=== PATIENT | male | born 1940 | race Caucasian/White ===

== ENCOUNTER 2025-04-19 10:34 | Outpatient (CLI) | payer MEDICARE, SELFPAY ==
--- NOTE | ~2025-04-19 | CT_ITS ---
EXAM/PROCEDURE: CT abdomen pelvis wo/w con HISTORY: MICROHEMATURIA COMPARISON: None available. TECHNIQUE: Pre and postcontrast CT of the abdomen and pelvis performed FINDINGS: Significantly enlarged prostate gland. No hydroureteronephrosis or urolithiasis seen. The distal portions of both ureters are not well seen on postcontrast series. The proximal ureters appear normal. The kidneys appear normal. Only part of the urinary bladder is filled with contrast but no large bladder mass seen. Gallbladder spleen pancreas stomach and adrenal glands and aorta appear normal for technique, then at the sclerotic calcification the aorta. The bowel gas pattern is nonobstructive with no free air or pneumatosis seen. Small amount of free fluid present in the lower pelvis. Moderate to severe sigmoid diverticular disease noted with no definite acute diverticulitis. Small bilateral fat-containing inguinal hernias, right greater than left. Calcified granuloma in the lung bases and mild fibrotic appearing changes. The lung bases are otherwise clear. Heart size normal with coronary artery calcifications. IMPRESSION: 1. Somewhat limited CT IVP with nonenhancement of the distal ureters on both sides and incomplete filling of the urinary bladder. The kidneys appear normal. Visualized portions of the ureters and urinary bladder also appear normal with no discrete source seen for hematuria. 2. Small amount of free fluid in the lower pelvis of uncertain origin. 3. Significant prostatomegaly. Advanced diverticular disease also present but no obvious diverticulitis. Reviewed, dictated and finalized at location A. UNTS PAYABLE ASSISTANT IMPRESSION: 1. Somewhat limited CT IVP with nonenhancement of the distal ureters on both si jose and incomplete filling of the urinary bladder. The kidneys appear normal. V isualized portions of the ureters and urinary bladder also appear normal with n o discrete source seen for hematuria. 2. Small amount of free fluid in the lower pelvis of uncertain origin. 3. Significant prostatomegaly. Advanced diverticular disease also present but n o obvious diverticulitis.
[2025-04-19 11:04] LABS: Estimated Glomerular Filt Rate 45
--- OUTSIDE RECORDS SUMMARY | 2025-04-19 12:30 | XMS_ITS | Clinical Summary ---
Author Organization [facility] Address [address] [place] [address] Phone Care Team Providers Care Digital Associate Media Director Name Role Phone Navjot Pelletier MD Primary Care Provider [phone] Allergies No known active allergies Medications atorvastatin (LIPITOR) 20 MG Tablet Take 20 mg by mouth daily. Active fenofibrate 160 MG Tablet Take 1 Tablet by mouth daily. 90 Tablet 3 07/09/2021 Active Social History Tobacco Use Types Packs/Day Years Used Date Smoking Tobacco: Former Smokeless Tobacco: Current Chew Alcohol Use Standard Drinks/Week Comments Yes 0 (1 standard drink = 0.6 oz pure alcohol) Occasionally, -3 times per week, 1 peach schnaps Sex and Gender Information Value Date Recorded Sex Assigned at Not on file Legal Sex Male 12:22 AM CDT Gender Identity Not on file Sexual Orientation Not on file Last Filed Vital Signs Vital Sign Reading Time Taken Comments Blood Pressure 134/80 03/17/2024 11:15 AM MINK FARMER Pulse 57 03/17/2024 11:15 AM MINK FARMER Temperature 35.6 C (96 F) 03/17/2024 9:24 AM MINK FARMER Respiratory Rate 16 03/17/2024 11:15 AM MINK FARMER Oxygen Saturation 99% 03/17/2024 11:15 AM MINK FARMER Inhaled Oxygen Concentration - - Weight 77 kg (169 lb 12.1 oz) 03/17/2024 9:24 AM MINK FARMER Height 180.3 cm (5' 11) 03/17/2024 9:24 AM MINK FARMER Body Mass Index 23.68 03/17/2024 9:24 AM MINK FARMER Plan of Treatment Health Maintenance Due Date Last Done Comments Hepatitis C Virus (HCV) Screening 1940 TdaP Immunization 1940 Pneumococcal Immunization (5 0+ years) (1 of 1 - PCV) 1992 Zoster Immunization (1 of 2) 1992 Respiratory Syncytial Virus (RSV) Immunization (Adult) (1 - 1-dose 75+ series) 2017 Medicare Initial AWV [id number] 05/05/2022 Influenza Immunization (#1) 2025 SARS-COV-2 Immunization (3 - season) 2025 08/22/2020, 07/30/2020 Hepatitis B Immunization Aged Out No longer eligible based on patient's age to complete this topic Human Papillomavirus (HPV) Immunization (No Doses Required) Completed Meningococcal Immunization (ACWY) Aged Out No longer eligible b ased on patient's age to complete this topic Rotavirus Immunization Aged Out No lo nger eligible based on patient's age to complete this topic Insurance [facility] Advance Directives Documents on File Type Date Recorded Patient Icu Registered Nurse Expl anation Power of Field Scout for Health Care 07/08/2021 1:58 PM POA-HC, 07/08/2021 * No CPR-Selective Treatment (Latest Code Status on File) Date Activated Date Inactivated Comments 07/07/2021 3:30 PM 07/09/2021 5:23 PM No CPR - Selec tive Treatment: FULL ARREST: Do Not Attempt Resuscitation. PRE-ARREST: DO NOT USE INTUBATION OR MECHANICAL VENTILATION, but may use basic medical treatment like CPAP or BiPAP, antibiotics, IV fluids, oxygen, etc. Avoid care in ICU setting. Question Answer Comments Physician documentation made in notes? Yes Care Teams Digital Associate Media Director Relationship Specialty Start Date End Date Navjot Pelletier MD [address] [place] [address] PCP - General Sports Medicine 07/08/21
--- OUTSIDE RECORDS SUMMARY | 2025-04-19 12:30 | XMS_ITS | Clinical Summary ---
Author Organization [facility] Address [address] [place] [address] Care Team Providers Care Product Architect Name Role Phone Michael Martinez MD Primary Care Provider [phone] Meka Miguel SERVICE LINE COORDINATOR-BC Unavailable [phone] Allergies No known active allergies Medications aspirin 325 MG tablet Take 1 tablet (325 mg total) by mouth daily. 03/20/2024 Active atorvastatin (LIPITOR) 20 MG tablet Take 1 tablet (20 mg total) by mouth daily. Active clopidogrel (PLAVIX) 75 MG tablet Take 1 tablet (75 mg total) by mouth daily. 03/20/2024 Active Active Problems No known active problems Social History Tobacco Use Types Packs/Day Years Used Date Smoking Tobacco: Never Assessed Sex and Gender Information Value Date Recorded Sex Assigned at Male 07/07/2024 7:55 AM LINING PRINTER Legal Sex Male 4:53 PM LINING PRINTER Gender Identity Not on file Sexual Orientation Not on file Last Filed Vital Signs Vital Sign Reading Time Taken Comments Blood Pressure 120/78 06/28/2024 1:49 PM LINING PRINTER Pulse 98 06/28/2024 1:49 PM LINING PRINTER Temperature - - Respiratory Rate - - Oxygen Saturation 95% 06/28/2024 1:49 PM LINING PRINTER Inhaled Oxygen Concentration - - Weight 69 kg (152 lb 3.2 oz) 06/28/2024 1:49 PM LINING PRINTER Height 181.6 cm (5' 11.5) 06/28/2024 1:49 PM CS T Body Mass Index 20.93 06/28/2024 1:49 PM LINING PRINTER Plan of Treatment Upcoming Encounters Date Type Department Care Team (Late st Contact Info) Description 07/04/2025 9:30 AM LINING PRINTER Office Visit [facility] [place] [address] Marco Antonio Suggs MD [facility] [address] [place] [address] Health Maintenance Due Date Last Done Comments ASCVD LDL 1942 DTaP, Tdap and Td Vaccines ( 1 - Tdap) 1961 Pneumococcal Vaccine: 50+ Years (1 of 1 - PCV) 1992 Zoster Vaccines (1 of 2) 1992 Annual Medicare Wellness Visit 2007 RSV Immunization or 60+ Years (1 - 1-dose 75+ series) 2017 COVID-19 Vaccine ( - 2024-2 6 season) 2025 05/27/2024, 08/22/2020, 07/30/2020 Influenza Adult (#1) 2025 Hepatitis A Vaccines Aged Out No long er eligible based on patient's age to complete this topic Meningococcal B Vaccine Aged Out No l onger eligible based on patient's age to complete this topic Meningococcal Vaccine Aged Out No pina cady eligible based on patient's age to complete this topic RSV Immunizations Under 20 Months Aged Out No longer eligible b ased on patient's age to complete this topic Insurance [facility] MEDICARE Care Teams Product Architect Relationship Specialty Start Date End Date Michael Martinez MD [address] [facility] [place] [address] PCP - General FAMILY PRACTICE 04/21/24 Meka Miguel, SERVICE LINE COORDINATOR- [address] [place] [address] NURSE PRACTITIONER 04/21/24
--- OUTSIDE RECORDS SUMMARY | 2025-04-19 12:30 | XMS_ITS | Clinical Summary ---
Author Organization [facility] Address [address] [place] [address] Care Team Providers Care Community Engagement Coordinator Name Role Phone Unknown, Provider Primary Care Provider Unavaila ble Source Comments [facility] [email or web address],non-owned Affiliates and Associated Physician Practices is amultiple site organization consisting of ambulatory clinics and hospital sitesin [place], [place], [place] and [place]. This disclosure is being madepursuant to the Care Everywhere program and may not contain all information available regarding this patient. Last updated 18.[facility] [email or web address] Allergies No known active allergies Medications * Be aware that medications may not be up to date on this document. Alwaysverify current medications with the patient. atorvastatin (Lipitor) 10 MG tablet Take 2 (two) tablets by mouth at bedtime Active aspirin (Aspirin) 325 MG tablet Take 1 (one) tablet by mouth once daily 30 tablet 11 03/20/2024 Active clopidogrel (plaVIX) 75 MG tablet Take 1 (one) tablet by mouth once daily 30 tablet 3 03/20/2024 Active Active Problems Problem Noted Date Diagnosed Date Stenosis of carotid artery, unspecified laterali ty 03/17/2024 [facility]brovascular accident [facility]CVA), [facility] 03/17/2024 Social History Tobacco Use Types Packs/Day Years Used Date Smoking Tobacco: Never Smokeless Tobacco: Current Chew Tobacco Cessation:Ready to Q uit: Not Asked; Counseling Given: Not Answered AUDIT-C Answer Date Recorded Q1: How often do you have a drink containing alc ohol? 2-4 times a month 03/17/2024 Q2: How many drinks containi ng alcohol do you have on a typical day when you are drinking? 1 or 2 03/17/2024 Q3: How often do you have si x or more drinks on one occasion? Never 03/17/2024 Overall Financial Resource Strain (CARDIA) Answe r Date Recorded How hard is it for you to pa y for the very basics like food, housing, medical care, and heating? Not hard at all 03/17/2024 PHQ-2 Answer Date Recorded Patient Health Questionnaire-2 Score 0 03/19/2024 [facility] [place] [facility] - Occupational Stress Questionnaire Answer Date Recorded Do you feel stress - tense, restless, nervous, or anxious, or unable to sleep at night because your mind is troubled all the time - these days? Not at all 03/17/2024 Hunger Vital Sign Answer Date Recorded Within the past 12 months, y ou worried that your food would run out before you got the money to buy more. Never true 03/17/20 24 Within the past 12 months, t he food you bought just didn't last and you didn't have money to get more. Never true 03/17/2024 PRAPARE - Transportation Answer Date Re corded In the past 12 months, has l ack of transportation kept you from medical appointments or from getting medications? No 03/05 In the past 12 months, has l ack of transportation kept you from meetings, work, or from getting things needed for daily living? No 03/17/2024 Housing Stability Vital Sign Answer Shadi e Recorded In the last 12 months, was t here a time when you were not able to pay the mortgage or rent on time? No 03/17/2024 In the past 12 months, how m any times have you moved where you were living? 1 03/17/2024 At any time in the past 12 m [facility], were you homeless or living in a senior care (including now)? No 03/17/2024 Sex and Gender Information Value Date Recorded Sex Assigned at Not on file Legal Sex Male 10:32 AM MATERIAL MOVER Gender Identity Not on file Sexual Orientation Not on file Last Filed Vital Signs Vital Sign Reading Time Taken Comments Blood Pressure 126/68 08/18/2024 1:55 PM CDT Pulse 72 08/18/2024 1:55 PM CDT Temperature 37 C (98.6 F) 03/19/2024 3:00 PM MATERIAL MOVER Respiratory Rate 18 08/18/2024 1:55 PM CDT Oxygen Saturation 98% 08/18/2024 1:55 PM CDT Inhaled Oxygen Concentration - - Weight 67.1 kg (148 lb) 08/18/2024 1:55 PM CDT Height 181.6 cm (5' 11.5) 08/18/2024 1:55 PM CD T Body Mass Index 20.35 08/18/2024 1:55 PM CDT Plan of Treatment Health Maintenance Due Date Last Done Comments DTAP/TDAP/TD VACCINES (1 - Tdap) 1961 PNEUMOCOCCAL VACCINE 50+ (1 of 1 - PCV) 1992 ZOSTER VACCINE (1 of 2) 1992 Respiratory Syncytial Virus (RSV) Vaccine Pt: or over 60 yrs (1 - 1-dose 75+ series) 2017 DEPRESSION SCREENING 05/05/2024 03/17/2024 MEDICARE AWV CALENDAR YEAR 2024 COVID-19 VACCINE (1 - 2024-2 6 season) 2025 INFLUENZA VACCINE (#1) 2025 HEPATITIS B VACCINE Aged Out No longe r eligible based on patient's age to complete this topic HIB VACCINE Aged Out No longer eligi ble based on patient's age to complete this topic HPV VACCINE Aged Out No longer eligi ble based on patient's age to complete this topic MENINGOCOCCAL (Group B) VACC INE SHARED DECISION-MAKING Aged Out No longer eligibl e based on patient's age to complete this topic MENINGOCOCCAL GROUPS A/C/Y/W VACCINE Aged Out No longer eligible b ased on patient's age to complete this topic Medical Devices Implanted Type Area Chronometer Repairer Device Identifier Shelf Expiration Date Model / Serial / Lot Stent-03/18/20 24 Implanted:Qty: 1 on 03/18/2024 by Wandy Moscoso MD Stent Right: Carotid [employer] 07/16/2027 / [id number] / [id number] Description:R ICA stent Insurance [facility] MANAGED MEDICARE ADV Advance Directives * Full Code (Latest Code Status on File) Date Activated Date Inactivated Comments 03/17/2024 1:48 PM 03/19/2024 8:24 PM Care Teams Community Engagement Coordinator Relationship Specialty Start Date End Date Unknown, Provider PCP - General 03/19/24
== END 2025-04-19 10:35 | disposition home or self-care (01) ==
PROVIDERS: PCP Family Medicine; Visit Provider Physician Assistant
DX: R31.29 Other microscopic hematuria (principal); N40.0 Benign prostatic hyperplasia without lower urinary tract symptoms
CPT/HCPCS: 74178; Q9967